=== PATIENT | female | born 1995 | race Caucasian/White ===

== ENCOUNTER 2017-09-27 13:37 | Emergency (ER) | payer OTHER ==
--- NOTE | 2017-09-27 14:19 | UC ---
Skin Complaint HPI - HPI Summary HPI Summary: Pt c/o "itchy" rash right hand between thumb and first finger, as well as anterior upper arm. - History of Current Complaint Chief Complaint: UCRash Time Seen by Provider: 09/27/17 14:08 Stated Complaint: SKIN COMPLAINT Hx Obtained From: Patient Hx Last Menstrual Period: 08/28/17 ?: No Onset/Duration: Sudden Onset, Lasting Days, Still Present, Worse Since - onset Skin Exposure Onset/Duration: Days Ago Timing: Constant Onset Severity: Mild Current Severity: Mild Pain Intensity: 0 Location: Discrete, Hand (Right) Character: Pruritus, Raised Aggravating Factor(s): Touch Alleviating Factor(s): Nothing Associated Signs & Symptoms: Positive: Rash - Allergy/Home Medications Allergies/Adverse Reactions: Allergies Allergy/AdvReac Type Severity Reaction Status Date / Time No Known Allergies Allergy Verified 09/27/17 13:53 Home Medications: Home Medications diPHENhydraMINE 2% CREAM(NF) [Benadryl 2% CREAM (NF)] 1 applic TOPICAL TID 09/27 [History Confirmed 09/27/17] Review of Systems Constitutional: Negative Skin: Rash Eyes: Negative ENT: Negative Respiratory: Negative Cardiovascular: Negative Gastrointestinal: Negative Genitourinary: Negative Motor: Negative Neurovascular: Negative Musculoskeletal: Negative Neurological: Negative Psychological: Negative Is Patient Immunocompromised?: No All Other Systems Reviewed And Are Negative: Yes PMH/Surg Hx/FS Hx/Imm Hx Previously Healthy: Yes - Surgical History Surgical History: None - Family History Known Family History: Positive: Hypertension - Social History Occupation: Employed Full-time Lives: With Family Alcohol Use: None Substance Use Type: None Smoking Status (MU): Never Smoked Tobacco Have You Smoked in the Last Year: No Physical Exam Triage Information Reviewed: Yes Appearance: Well-Appearing Vital Signs: Initial Vital Signs Temp 98.7 F 09/27/17 13:53 Pulse 98 09/27/17 13:53 Resp 15 09/27/17 13:53 BP 125/63 09/27/17 13:53 Pulse Ox 100 09/27/17 13:53 Vital Signs Reviewed: Yes Eye Exam: Normal ENT: Positive: Hearing grossly normal Dental Exam: Normal Neck exam: Normal Respiratory: Positive: No respiratory distress Musculoskeletal Exam: Normal Neurological Exam: Normal Psychological Exam: Normal Skin: Positive: rashes - right hand, between thumb and first finger and upper left anterior upper arm, alice tracts Course/Dx - Differential Diagnoses - Skin Complaint Differential Diagnoses: Contact Dermatitis, Scabies - Diagnoses Provider Diagnoses: scabies Discharge - Sign-Out/Discharge Documenting (check all that apply): Patient Departure - Discharge Plan Condition: Stable Disposition: HOME Prescriptions: Permethrin 5% CREAM* 1 applic TOPICAL SEE INSTRUCTIONS #1 tube Patient Education Materials: Scabies (ED) Referrals: Torrie Costa NP [Primary Care Provider] - If Needed - Billing Disposition and Condition Condition: STABLE Disposition: Home
[2017-09-27 14:59] VITALS: BP 125/63
== END 2017-09-27 14:34 | disposition home or self-care (01) ==
LOC: UCCORT 13:37
DX: B86 Scabies (principal)
CPT/HCPCS: 99212; G0463

== ENCOUNTER 2017-10-02 08:28 | Emergency (ER) | payer OTHER ==
[2017-10-02 09:03] VITALS: BP 126/73
--- NOTE | 2017-10-02 09:11 | UC ---
Skin Complaint HPI - HPI Summary HPI Summary: Patient to urgent care today with continued on complaint of skin discomfort patient has a 2 cm diameter erythemic patch between her thumb and her index finger on her right hand and the same size patch on her left upper arm. There are some raised areas inside the patch of erythema there are no vesicles noted. Patient was camping recently. 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 Was seen here 5 days ago and treated with permethrin cream which has not helped a bit - History of Current Complaint Chief Complaint: UCSkin Time Seen by Provider: 10/02/17 09:02 Stated Complaint: RE CHECK - RASH Hx Obtained From: Patient Hx Last Menstrual Period: PRESENT ?: No Onset/Duration: Sudden Onset, Lasting Weeks - 1, Still Present Timing: Constant Onset Severity: Mild Current Severity: Mild Pain Intensity: 0 Location: Discrete Character: Redness, Raised Aggravating Factor(s): Nothing Alleviating Factor(s): Nothing Associated Signs & Symptoms: Positive: Rash - Allergy/Home Medications Allergies/Adverse Reactions: Allergies Allergy/AdvReac Type Severity Reaction Status Date / Time No Known Allergies Allergy Verified 10/02/17 09:03 Review of Systems Constitutional: Negative Skin: Rash - right hand web space between thumb and first finger, left upper arm Eyes: Negative ENT: Negative Respiratory: Negative Cardiovascular: Negative Gastrointestinal: Negative Genitourinary: Negative Motor: Negative Neurovascular: Negative Musculoskeletal: Negative Neurological: Negative Psychological: Negative Is Patient Immunocompromised?: No All Other Systems Reviewed And Are Negative: Yes PMH/Surg Hx/FS Hx/Imm Hx Previously Healthy: Yes - Surgical History Surgical History: None - Family History Known Family History: Positive: Hypertension - Social History Occupation: Employed Full-time Lives: With Family Alcohol Use: None Substance Use Type: None Smoking Status (MU): Never Smoked Tobacco Have You Smoked in the Last Year: No Physical Exam Triage Information Reviewed: Yes Appearance: Well-Appearing, No Pain Distress, Well-Nourished Vital Signs: Initial Vital Signs Temp 99.3 F 10/02/17 08:42 Pulse 100 10/02/17 08:42 Resp 18 10/02/17 08:42 BP 126/73 10/02/17 08:42 Pulse Ox 100 10/02/17 08:42 Vital Signs Reviewed: Yes Eye Exam: Normal Eyes: Positive: Conjunctiva Clear ENT Exam: Normal ENT: Positive: Normal ENT inspection, Hearing grossly normal. Negative: Trismus , Muffled voice, Hoarse voice Dental Exam: Normal Neck exam: Normal Neck: Positive: Supple, Nontender Respiratory Exam: Normal Respiratory: Positive: Chest non-tender, No respiratory distress, No accessory muscle use Cardiovascular Exam: Normal Cardiovascular: Positive: RRR, No Murmur, Pulses Normal, Brisk Capillary Refill Musculoskeletal Exam: Normal Musculoskeletal: Positive: Strength Intact, ROM Intact, No Edema Neurological Exam: Normal Neurological: Positive: Alert, Muscle Tone Normal Psychological Exam: Normal Skin: Positive: rashes Course/Dx - Course Course Of Treatment: temovate cream bid, keflex, follow with pcp prn - Diagnoses Provider Diagnoses: contact dermititis right hand left upper arm Discharge - Sign-Out/Discharge Documenting (check all that apply): Patient Departure - Discharge Plan Condition: Stable Disposition: HOME Prescriptions: Cephalexin CAP* [Keflex CAP*] 500 mg PO QID #20 cap Clobetasol Propionate [Temovate] 30 gm TP BID 14 Days #30 cream..g. Patient Education Materials: Contact Dermatitis (ED) Print Language: NORTHER[place] IRISH Forms: *Work Release Referrals: Torrie Costa NP [Primary Care Provider] - - Billing Disposition and Condition Condition: STABLE Disposition: Home
== END 2017-10-02 09:20 | disposition home or self-care (01) ==
LOC: UCCORT 08:28
DX: Z51.89 Encounter for other specified aftercare (principal); L25.9 Unspecified contact dermatitis, unspecified cause
CPT/HCPCS: 99212; G0463